=== PATIENT | male | born 1960 | race Caucasian/White ===

== ENCOUNTER 2019-07-27 05:12 | Inpatient (IN) | payer BC ==
[2019-07-24 09:17] LABS: BASOPHILS # (AUTO) 0.02 x10^3/uL (0-0.1); BASOPHILS % (AUTO) 1 % (0-1); EOSINOPHILS # (AUTO) 0.08 x10^3/uL (0-0.4); EOSINOPHILS % (AUTO) 2 % (1-7); LYMPHOCYTES # (AUTO) 1.01 x10^3/uL (1-3.4); LYMPHOCYTES % (AUTO) 24 % (22-44); MD NO; MEAN CORPUSCULAR HEMOGLOBIN 33.6 pg (27.5-34.5); MEAN CORPUSCULAR HGB CONC 33.4 g/dL (33.2-36.2); MEAN CORPUSCULAR VOLUME 100.8 fL (81-97); MONOCYTES # (AUTO) 0.62 x10^3/uL (0.2-0.8); MONOCYTES % (AUTO) 15 % (2-9); NEUTROPHILS # (AUTO) 2.42 x10^3/uL (1.8-6.8); NEUTROPHILS % (AUTO) 58 % (42-75); PLATELET COUNT 154 x10^3/uL (130-400); RED BLOOD COUNT 4.72 x10^6/uL (4.38-5.82); RED CELL DISTRIBUTION WIDTH 12.3 % (9.4-14.8)
[2019-07-24 09:22] LABS: INTERNATIONAL NORMALIZED RATIO 0.99 (0.93-1.1); PROTHROMBIN TIME 10.4 Seconds (9.6-11.5)
[2019-07-24 09:24] LABS: MICROSCOPIC NOT IND
[2019-07-24 09:27] LABS: CULTURE INDICATED? NO
[2019-07-24 09:31] LABS: ALBUMIN 3.9 g/dL (3.4-5.0); ANION GAP 8 mmol/L (5-15); CHLORIDE 109 mmol/L (98-107)
[2019-07-24 09:34] LABS: ALANINE AMINOTRANSFERASE 35 U/L (12-78); ALKALINE PHOSPHATASE 64 U/L (45-117); BILIRUBIN,TOTAL 1.7 mg/dL (0.2-1.0); CREATININE 0.98 mg/dL (0.7-1.3); TOTAL PROTEIN 7.6 g/dL (6.4-8.2)
[~2019-07-27] VITALS: Ht 180.3 cm; Wt 96.0 kg
[~2019-07-27 05:12] MED LIST: CYAN50003 PO; ETOD400T2 PO; Vitamin D3 PO
[2019-07-27] MEDS ORDERED: THROMBIN 5,000 UNIT VIAL TP ONE ×4 (06:08→10:00)
[2019-07-27] MEDS ORDERED: HEPARIN 1,000 UNITS/ML, 30ML ONE ×3 (06:08→09:27)
[2019-07-27] MEDS ORDERED: LACTATED RINGERS 1,000 ML IV SCH (06:09)
[2019-07-27] MEDS ORDERED: BACITRACIN 50,000 UNIT ONE (06:09)
[2019-07-27] MEDS ORDERED: ACETAMINOPHEN 500 MG TABLET PO ONE (06:30)
[2019-07-27] MEDS ORDERED: MIDAZOLAM 1 MG/ML, 2ML ONE ×2 (06:48→09:29)
[2019-07-27] MEDS ORDERED: FENTANYL PF 250 MCG/5ML ONE (06:48)
[2019-07-27] MEDS ORDERED: PROPOFOL 150 ML ONE (06:51)
[2019-07-27] MEDS ORDERED: ONDANSETRON 2MG/ML, 2ML IV PRN (07:00)
[2019-07-27] MEDS ORDERED: ONDANSETRON ODT 8 MG PO PRN (07:00)
[2019-07-27] MEDS ORDERED: FENTANYL PF 100 MCG/2ML IV PRN (07:00)
[2019-07-27] MEDS ORDERED: HYDROmorphone 2 MG/ML, 1ML IVPush PRN (07:00)
[2019-07-27] MEDS ORDERED: LORazepam 2 MG/ML, 1ML IVPush PRN (07:00)
[2019-07-27] MEDS ORDERED: OXYcodone 5 MG/5 ML ORAL.SOL UDC PO PRN (07:00)
[2019-07-27] MEDS ORDERED: DIAZEPAM 5 MG/ML, 2ML IVPush PRN (07:00)
[2019-07-27] MEDS ORDERED: PROMETHAZINE 25 MG/ML, 1ML IV PRN (07:00)
[2019-07-27] MEDS ORDERED: CALCIUM CHLORIDE 13.6 MEQ/10 ML ONE (07:03)
[2019-07-27] MEDS ORDERED: PHENYLEPHRINE 10 MG/ML ONE (07:03)
[2019-07-27] MEDS ORDERED: EPINEPHRINE 1 MG/ML, 1ML ONE (07:03)
[2019-07-27] MEDS ORDERED: HEPARIN 1,000 UNITS/ML, 30ML IVPB ONE (07:32)
[2019-07-27] MEDS ORDERED: ROCURONIUM 10MG/ML,5ML ONE (10:08)
[2019-07-27] MEDS ORDERED: NEOSTIGMINE 1 MG/ML, 10ML ONE (10:08)
[2019-07-27] MEDS ORDERED: ONDANSETRON 2MG/ML, 2ML ONE (10:08)
[2019-07-27] MEDS ORDERED: PROPOFOL 10 MG/ML, 20ML ONE (10:08)
[2019-07-27] MEDS ORDERED: SUCCINYLCHOLINE 20 MG/ML, 10ML ONE (10:08)
[2019-07-27] MEDS ORDERED: DEXAMETHASONE 4 MG/ML, 1ML ONE (10:08)
[2019-07-27] MEDS ORDERED: GLYCOPYRROLATE 0.2MG/1ML, 5ML ONE (10:08)
[2019-07-27] MEDS ORDERED: CEFAZOLIN 1,000 MG ONE (10:08)
[2019-07-27] MEDS ORDERED: ONDANSETRON 2MG/ML, 2ML IVPush PRN (10:30)
[2019-07-27] MEDS ORDERED: MAGNESIUM HYDROXIDE 8%, 30ML UDC PO PRN (10:30)
[2019-07-27] MEDS ORDERED: PROMETHAZINE 25 MG/ML, 1ML IM PRN (10:30)
[2019-07-27] MEDS ORDERED: HYDROcodone/APAP 5/325 TABLET PO PRN (10:30)
[2019-07-27] MEDS ORDERED: DIPHENHYDRAMINE 50 MG/ML, 1ML IVPush PRN (10:30)
[2019-07-27] MEDS ORDERED: SENNA/DOCUSATE TABLET PO PRN (10:30)
[2019-07-27] MEDS ORDERED: MORPHINE SULFATE 4 MG/ML, 1ML IVPush PRN (10:30)
[2019-07-27] MEDS ORDERED: PHARMACY MAY ADJ FOR RENAL FX MC PRN (10:30)
[2019-07-27] MEDS ORDERED: HYDROcodone/APAP 10/325 MG TABLET PO PRN (10:30)
[2019-07-27] MEDS ORDERED: FENTANYL PF 100 MCG/2ML ONE (10:43)
[2019-07-27 10:53] LABS: MEAN CORPUSCULAR HEMOGLOBIN 34.1 pg (27.5-34.5); MEAN CORPUSCULAR HGB CONC 34.3 g/dL (33.2-36.2); MEAN CORPUSCULAR VOLUME 99.4 fL (81-97); MEAN PLATELET VOLUME 8.9 fL (7.4-10.4); PLATELET COUNT 112 x10^3/uL (130-400); RED CELL DISTRIBUTION WIDTH 13.6 % (9.4-14.8)
[2019-07-27 11:12] LABS: BASOPHILS % (AUTO) 0 % (0-1); EOSINOPHILS # (AUTO) 0.14 x10^3/uL (0-0.4); EOSINOPHILS % (AUTO) 1 % (1-7); LYMPHOCYTES # (AUTO) 0.77 x10^3/uL (1-3.4); LYMPHOCYTES % (AUTO) 6 % (22-44); MD SCAN; MONOCYTES # (AUTO) 0.36 x10^3/uL (0.2-0.8); MONOCYTES % (AUTO) 3 % (2-9); NEUTROPHILS # (AUTO) 11.63 x10^3/uL (1.8-6.8); NEUTROPHILS % (AUTO) 90 % (42-75)
[2019-07-27] MEDS ORDERED: LIDOCAINE-MPF 2% ,5ML ONE (11:29)
[2019-07-27 12:39] LABS: INTERNATIONAL NORMALIZED RATIO 1.24 (0.93-1.1); PROTHROMBIN TIME 12.9 Seconds (9.6-11.5)
[2019-07-27 12:40] LABS: ANION GAP 7 mmol/L (5-15); CALCIUM 7.9 mg/dL (8.5-10.1); CHLORIDE 116 mmol/L (98-107); CREATININE 0.94 mg/dL (0.7-1.3)
[2019-07-27 12:55] LABS: BASOPHILS # (AUTO) 0.05 x10^3/uL (0-0.1); BASOPHILS % (AUTO) 0 % (0-1); EOSINOPHILS # (AUTO) 0.08 x10^3/uL (0-0.4); EOSINOPHILS % (AUTO) 1 % (1-7); LYMPHOCYTES # (AUTO) 0.51 x10^3/uL (1-3.4); LYMPHOCYTES % (AUTO) 4 % (22-44); MD SCAN; MEAN CORPUSCULAR HEMOGLOBIN 33.4 pg (27.5-34.5); MEAN CORPUSCULAR HGB CONC 33.3 g/dL (33.2-36.2); MEAN CORPUSCULAR VOLUME 100.3 fL (81-97); MEAN PLATELET VOLUME 9.4 fL (7.4-10.4); MONOCYTES # (AUTO) 0.37 x10^3/uL (0.2-0.8); MONOCYTES % (AUTO) 3 % (2-9); NEUTROPHILS # (AUTO) 12.31 x10^3/uL (1.8-6.8); NEUTROPHILS % (AUTO) 93 % (42-75); PLATELET COUNT 95 x10^3/uL (130-400); RED BLOOD COUNT 5.24 x10^6/uL (4.38-5.82); RED CELL DISTRIBUTION WIDTH 13.8 % (9.4-14.8)
[2019-07-27] MEDS: D5%-0.9% NACL+KCL 20MEQ 1,000 ML IV SCH ×2 (12:55→19:20)
[2019-07-27] MEDS: OXYcodone/APAP 5/325MG TABLET PO PRN ×3 (15:15→23:37)
[2019-07-27] MEDS: CEFAZOLIN PMX 1GM/50ML 50 ML IVPB SCH (17:31)
[2019-07-27] MEDS: METHOCARBAMOL 750 MG TABLET PO PRN (18:08)
[2019-07-27 18:37] LABS: BASOPHILS % (AUTO) 0 % (0-1); EOSINOPHILS % (AUTO) 0 % (1-7); LYMPHOCYTES # (AUTO) 0.46 x10^3/uL (1-3.4); LYMPHOCYTES % (AUTO) 3 % (22-44); MD NO; MEAN CORPUSCULAR HEMOGLOBIN 33.4 pg (27.5-34.5); MEAN CORPUSCULAR HGB CONC 33.5 g/dL (33.2-36.2); MEAN CORPUSCULAR VOLUME 99.6 fL (81-97); MEAN PLATELET VOLUME 9.7 fL (7.4-10.4); MONOCYTES # (AUTO) 0.78 x10^3/uL (0.2-0.8); MONOCYTES % (AUTO) 5 % (2-9); NEUTROPHILS # (AUTO) 14.37 x10^3/uL (1.8-6.8); NEUTROPHILS % (AUTO) 92 % (42-75); PLATELET COUNT 104 x10^3/uL (130-400); RED BLOOD COUNT 5.35 x10^6/uL (4.38-5.82); RED CELL DISTRIBUTION WIDTH 13.7 % (9.4-14.8)
[2019-07-27] MEDS: SODIUM CHLORIDE FLUSH 10ML SYR IVF SCH (19:07)
[2019-07-27 20:53] LABS: BASOPHILS # (AUTO) 0.11 x10^3/uL (0-0.1); BASOPHILS % (AUTO) 1 % (0-1); EOSINOPHILS % (AUTO) 0 % (1-7); LYMPHOCYTES # (AUTO) 0.46 x10^3/uL (1-3.4); LYMPHOCYTES % (AUTO) 3 % (22-44); MD NO; MEAN CORPUSCULAR HEMOGLOBIN 33.6 pg (27.5-34.5); MEAN CORPUSCULAR HGB CONC 33.7 g/dL (33.2-36.2); MEAN CORPUSCULAR VOLUME 99.7 fL (81-97); MONOCYTES # (AUTO) 0.92 x10^3/uL (0.2-0.8); MONOCYTES % (AUTO) 7 % (2-9); NEUTROPHILS # (AUTO) 12.49 x10^3/uL (1.8-6.8); NEUTROPHILS % (AUTO) 89 % (42-75); PLATELET COUNT 102 x10^3/uL (130-400); RED BLOOD COUNT 4.95 x10^6/uL (4.38-5.82)
[2019-07-28] MEDS: D5%-0.9% NACL+KCL 20MEQ 1,000 ML IV SCH ×2 (01:20→02:00)
[2019-07-28] MEDS: CEFAZOLIN PMX 1GM/50ML 50 ML IVPB SCH (01:26)
[2019-07-28] MEDS: METHOCARBAMOL 750 MG TABLET PO PRN ×3 (02:13→20:12)
[2019-07-28 02:32] LABS: MEAN CORPUSCULAR HGB CONC 33.9 g/dL (33.2-36.2); MEAN CORPUSCULAR VOLUME 100.3 fL (81-97); RED CELL DISTRIBUTION WIDTH 14.1 % (9.4-14.8)
[2019-07-28 02:49] LABS: MD YES; MEAN PLATELET VOLUME 9.4 fL (7.4-10.4); PLATELET COUNT 81 x10^3/uL (130-400)
[2019-07-28 02:53] LABS: LYMPH#(MANUAL) 1.06 x10^3/uL (1-3.4); LYMPHS% (MANUAL) 7 % (22-44); MONOS#(MANUAL) 1.37 x10^3/uL (0.3-2.7); MONOS% (MANUAL) 9 % (2-9); SEG#(MANUAL) 12.77 x10^3/uL (1.8-6.8); SEGS% (MANUAL) 84 % (42-75)
[2019-07-28 02:54] LABS: <PLATELET ESTIMATE> DECREASED; <RBC MORPHOLOGY> NORMAL
[2019-07-28 02:55] LABS: LARGE PLATELETS 1+
[2019-07-28] MEDS: OXYcodone/APAP 5/325MG TABLET PO PRN ×5 (03:16→23:36)
[2019-07-28 04:05] LABS: ALANINE AMINOTRANSFERASE 20 U/L (12-78); ALBUMIN 2.3 g/dL (3.4-5.0); ANION GAP 4 mmol/L (5-15); CALCIUM 7.4 mg/dL (8.5-10.1); CHLORIDE 113 mmol/L (98-107); CREATININE 0.86 mg/dL (0.7-1.3)
[2019-07-28 04:12] LABS: ALKALINE PHOSPHATASE 35 U/L (45-117); BILIRUBIN,TOTAL 1.4 mg/dL (0.2-1.0); TOTAL PROTEIN 4.8 g/dL (6.4-8.2)
[2019-07-28] MEDS: CYANOCOBALAMIN 1,000 MCG TABLET PO SCH (08:00)
[2019-07-28 08:28] LABS: MD YES; MEAN CORPUSCULAR HEMOGLOBIN 32.9 pg (27.5-34.5); MEAN CORPUSCULAR HGB CONC 33.4 g/dL (33.2-36.2); MEAN CORPUSCULAR VOLUME 98.5 fL (81-97); MEAN PLATELET VOLUME 9.5 fL (7.4-10.4); RED BLOOD COUNT 4.92 x10^6/uL (4.38-5.82); RED CELL DISTRIBUTION WIDTH 14.1 % (9.4-14.8)
[2019-07-28] MEDS: SODIUM CHLORIDE FLUSH 10ML SYR IVF SCH ×2 (09:00→18:59)
[2019-07-28] MEDS: CHOLECALCIFEROL 400 UNITS TABLET PO SCH (09:00)
[2019-07-28 10:17] LABS: BAND#(MANUAL) 0.34 x10^3/uL; BANDS%(MANUAL) 2 % (0-7); LYMPH#(MANUAL) 1.68 x10^3/uL (1-3.4); LYMPHS% (MANUAL) 10 % (22-44); MONOS#(MANUAL) 2.35 x10^3/uL (0.3-2.7); MONOS% (MANUAL) 14 % (2-9); SEG#(MANUAL) 12.43 x10^3/uL (1.8-6.8); SEGS% (MANUAL) 74 % (42-75)
[2019-07-28 10:18] LABS: <RBC MORPHOLOGY> NORMAL
[2019-07-29] MEDS: METHOCARBAMOL 750 MG TABLET PO PRN ×3 (04:07→21:34)
[2019-07-29 04:21] LABS: MEAN CORPUSCULAR HEMOGLOBIN 34.6 pg (27.5-34.5); MEAN CORPUSCULAR HGB CONC 34.6 g/dL (33.2-36.2); MEAN CORPUSCULAR VOLUME 99.9 fL (81-97); MEAN PLATELET VOLUME 9.1 fL (7.4-10.4); PLATELET COUNT 78 x10^3/uL (130-400); RED BLOOD COUNT 3.99 x10^6/uL (4.38-5.82); RED CELL DISTRIBUTION WIDTH 13.5 % (9.4-14.8)
[2019-07-29 04:26] LABS: MD YES
[2019-07-29 04:29] LABS: ALANINE AMINOTRANSFERASE 15 U/L (12-78); ALBUMIN 2.5 g/dL (3.4-5.0); ANION GAP 4 mmol/L (5-15); CALCIUM 7.8 mg/dL (8.5-10.1); CHLORIDE 107 mmol/L (98-107); CREATININE 0.97 mg/dL (0.7-1.3)
[2019-07-29 04:31] LABS: ALKALINE PHOSPHATASE 34 U/L (45-117); BILIRUBIN,TOTAL 1.1 mg/dL (0.2-1.0); TOTAL PROTEIN 5.3 g/dL (6.4-8.2)
[2019-07-29 04:36] LABS: EOS#(MANUAL) 0.11 x10^3/uL (0.0-0.4); EOS% (MANUAL) 1 % (1-7); LYMPH#(MANUAL) 1.05 x10^3/uL (1-3.4); LYMPHS% (MANUAL) 10 % (22-44); MONOS#(MANUAL) 0.84 x10^3/uL (0.3-2.7); MONOS% (MANUAL) 8 % (2-9); SEG#(MANUAL) 8.51 x10^3/uL (1.8-6.8); SEGS% (MANUAL) 81 % (42-75)
[2019-07-29 04:37] LABS: <PLATELET ESTIMATE> DECREASED; <PLT MORPHOLOGY> NORMAL PLT MORPH; <RBC MORPHOLOGY> NORMAL
[2019-07-29] MEDS: OXYcodone/APAP 5/325MG TABLET PO PRN ×4 (06:55→20:52)
[2019-07-29] MEDS: SODIUM CHLORIDE FLUSH 10ML SYR IVF SCH ×2 (08:49→21:35)
[2019-07-29] MEDS: CYANOCOBALAMIN 1,000 MCG TABLET PO SCH (08:49)
[2019-07-29] MEDS: CHOLECALCIFEROL 400 UNITS TABLET PO SCH (08:49)
[2019-07-29 11:22] VITALS: BP 133/80
[2019-07-29 13:56] VITALS: BP 124/78
[2019-07-29 18:52] VITALS: BP 123/73
[2019-07-30 00:52] VITALS: BP 120/76
[2019-07-30] MEDS: OXYcodone/APAP 5/325MG TABLET PO PRN ×5 (01:19→22:40)
[2019-07-30] MEDS: SODIUM CHLORIDE 0.9% 1,000 ML IV SCH ×2 (01:32→10:44)
[2019-07-30 05:22] LABS: ALBUMIN 2.6 g/dL (3.4-5.0); ANION GAP 4 mmol/L (5-15); CHLORIDE 106 mmol/L (98-107)
[2019-07-30 05:23] LABS: MEAN CORPUSCULAR HEMOGLOBIN 33.8 pg (27.5-34.5); MEAN CORPUSCULAR HGB CONC 34.1 g/dL (33.2-36.2); MEAN CORPUSCULAR VOLUME 99.3 fL (81-97); MEAN PLATELET VOLUME 9.4 fL (7.4-10.4); PLATELET COUNT 88 x10^3/uL (130-400); RED BLOOD COUNT 3.82 x10^6/uL (4.38-5.82); RED CELL DISTRIBUTION WIDTH 13.2 % (9.4-14.8)
[2019-07-30 05:26] LABS: ALANINE AMINOTRANSFERASE 16 U/L (12-78); ALKALINE PHOSPHATASE 36 U/L (45-117); CREATININE 0.84 mg/dL (0.7-1.3); TOTAL PROTEIN 5.6 g/dL (6.4-8.2)
[2019-07-30 06:04] LABS: BASOPHILS # (AUTO) 0.02 x10^3/uL (0-0.1); BASOPHILS % (AUTO) 0 % (0-1); EOSINOPHILS # (AUTO) 0.06 x10^3/uL (0-0.4); EOSINOPHILS % (AUTO) 1 % (1-7); LYMPHOCYTES # (AUTO) 1.07 x10^3/uL (1-3.4); LYMPHOCYTES % (AUTO) 12 % (22-44); MD SCAN; MONOCYTES # (AUTO) 1.11 x10^3/uL (0.2-0.8); MONOCYTES % (AUTO) 13 % (2-9); NEUTROPHILS # (AUTO) 6.59 x10^3/uL (1.8-6.8); NEUTROPHILS % (AUTO) 74 % (42-75)
[2019-07-30] MEDS: METHOCARBAMOL 750 MG TABLET PO PRN ×2 (06:45→21:53)
[2019-07-30 06:47] VITALS: BP 118/77
[2019-07-30] MEDS ORDERED: SODIUM CHLORIDE 0.9% 1,000 ML IV SCH (09:00)
[2019-07-30] MEDS: CHOLECALCIFEROL 400 UNITS TABLET PO SCH (09:08)
[2019-07-30] MEDS: SODIUM CHLORIDE FLUSH 10ML SYR IVF SCH (09:08)
[2019-07-30] MEDS: CYANOCOBALAMIN 1,000 MCG TABLET PO SCH (09:08)
[2019-07-30 12:24] VITALS: BP 135/81
[2019-07-30] MEDS ORDERED: FENTANYL PF 250 MCG/5ML ONE (13:58)
[2019-07-30] MEDS ORDERED: MIDAZOLAM 1 MG/ML, 2ML ONE (13:58)
[2019-07-30] MEDS ORDERED: BUPIVACAINE/PF 0.5% ONE (15:21)
[2019-07-30] MEDS ORDERED: THROMBIN 5,000 UNIT VIAL TP ONE (15:22)
[2019-07-30] MEDS ORDERED: VANCOMYCIN 1,000 MG ONE (15:22)
[2019-07-30] MEDS ORDERED: BACITRACIN 50,000 UNIT ONE (15:22)
[2019-07-30] MEDS ORDERED: PHENYLEPHRINE 10 MG/ML ONE (15:49)
[2019-07-30] MEDS ORDERED: EPHEDRINE 50 MG/ML, 1ML ONE (15:49)
[2019-07-30] MEDS ORDERED: BUPIVACAINE LIPOSOME/PF 10ML INFIL ONE (16:03)
[2019-07-30] MEDS ORDERED: DIAZEPAM 5 MG/ML, 2ML IVPush PRN (17:00)
[2019-07-30] MEDS ORDERED: HYDROmorphone 2 MG/ML, 1ML IVPush PRN (17:00)
[2019-07-30] MEDS ORDERED: MEPERIDINE/PF 25MG/ML,1ML IVPush PRN (17:00)
[2019-07-30] MEDS ORDERED: PROMETHAZINE 25 MG/ML, 1ML IV PRN (17:00)
[2019-07-30] MEDS ORDERED: ALBUTEROL/IPRATROPIUM 2.5MG/0.5MG, 3 ML NPPB PRN (17:00)
[2019-07-30] MEDS ORDERED: hydrALAzine 20 MG/ML, 1ML IV PRN (17:00)
[2019-07-30] MEDS ORDERED: METOPROLOL 1 MG/ML, 5ML IV PRN (17:00)
[2019-07-30] MEDS ORDERED: OXYcodone 5 MG/5 ML ORAL.SOL UDC PO PRN (17:00)
[2019-07-30] MEDS ORDERED: ACETAMINOPHEN 325 MG TABLET PO PRN (17:00)
[2019-07-30] MEDS ORDERED: MIDAZOLAM 1 MG/ML, 2ML IV PRN (17:00)
[2019-07-30] MEDS ORDERED: PROPOFOL 50 ML ONE (17:18)
[2019-07-30] MEDS ORDERED: OXYcodone 5 MG/5 ML ORAL.SOL UDC ONE (17:53)
[2019-07-30] MEDS ORDERED: FENTANYL PF 100 MCG/2ML ONE (17:53)
[2019-07-30] MEDS: FENTANYL PF 100 MCG/2ML IV PRN ×3 (18:02→18:15)
[2019-07-30 19:34] VITALS: BP 141/89
[2019-07-30] MEDS ORDERED: PHARMACY MAY ADJ FOR RENAL FX MC PRN (20:00)
[2019-07-30] MEDS ORDERED: DIPHENHYDRAMINE 50 MG/ML, 1ML IM PRN (20:00)
[2019-07-30] MEDS ORDERED: LABETALOL 5MG/ML, 20ML IV PRN (20:00)
[2019-07-30] MEDS ORDERED: DIPHENHYDRAMINE 50 MG/ML, 1ML IVPush PRN (20:00)
[2019-07-30] MEDS ORDERED: MAGNESIUM HYDROXIDE 8%, 30ML UDC PO PRN (20:00)
[2019-07-30] MEDS ORDERED: PROMETHAZINE 25 MG/ML, 1ML IM PRN (20:00)
[2019-07-30] MEDS ORDERED: BISACODYL 10 MG SUPP PR PRN (20:00)
[2019-07-30] MEDS ORDERED: ONDANSETRON 2MG/ML, 2ML IV PRN (20:00)
[2019-07-30] MEDS: D5%-0.9% NACL+KCL 20MEQ 1,000 ML IV SCH (22:26)
[2019-07-31 00:02] VITALS: BP 124/81
[2019-07-31] MEDS: CEFAZOLIN PMX 1GM/50ML 50 ML IVPB SCH ×2 (01:56→09:45)
[2019-07-31 03:28] VITALS: BP 125/75
[2019-07-31] MEDS: OXYcodone/APAP 5/325MG TABLET PO PRN ×5 (03:38→23:20)
[2019-07-31 05:23] LABS: BASOPHILS # (AUTO) 0.01 x10^3/uL (0-0.1); BASOPHILS % (AUTO) 0 % (0-1); EOSINOPHILS # (AUTO) 0.12 x10^3/uL (0-0.4); EOSINOPHILS % (AUTO) 1 % (1-7); LYMPHOCYTES # (AUTO) 0.35 x10^3/uL (1-3.4); LYMPHOCYTES % (AUTO) 3 % (22-44); MD NO; MEAN CORPUSCULAR HEMOGLOBIN 33.6 pg (27.5-34.5); MEAN CORPUSCULAR HGB CONC 33.6 g/dL (33.2-36.2); MEAN PLATELET VOLUME 9.6 fL (7.4-10.4); MONOCYTES # (AUTO) 0.76 x10^3/uL (0.2-0.8); MONOCYTES % (AUTO) 8 % (2-9); NEUTROPHILS % (AUTO) 88 % (42-75); PLATELET COUNT 112 x10^3/uL (130-400); RED BLOOD COUNT 3.71 x10^6/uL (4.38-5.82); RED CELL DISTRIBUTION WIDTH 12.8 % (9.4-14.8)
[2019-07-31 05:32] LABS: ALBUMIN 2.4 g/dL (3.4-5.0); CHLORIDE 109 mmol/L (98-107)
[2019-07-31 05:35] LABS: ANION GAP 5 mmol/L (5-15); CALCIUM 7.8 mg/dL (8.5-10.1)
[2019-07-31] MEDS: ENOXAPARIN 40 MG/0.4 ML SQ SCH (06:27)
[2019-07-31] MEDS: METHOCARBAMOL 750 MG TABLET PO PRN ×3 (06:27→23:20)
[2019-07-31 07:18] VITALS: BP 121/87
[2019-07-31] MEDS ORDERED: CALCIUM GLUCONATE 4.6 MEQ in SODIUM CHLORIDE 0.9% 50 ML IV ONE (07:30)
[2019-07-31] MEDS ORDERED: CEPHALEXIN 500 MG CAPSULE PO SCH ×2 (08:00→16:00)
[2019-07-31] MEDS: CHOLECALCIFEROL 400 UNITS TABLET PO SCH (08:13)
[2019-07-31] MEDS: SENNA/DOCUSATE TABLET PO SCH (08:14)
[2019-07-31] MEDS: D5%-0.9% NACL+KCL 20MEQ 1,000 ML IV SCH ×2 (12:00→19:40)
[2019-07-31 13:32] VITALS: BP 152/91
[2019-07-31] MEDS: CEPHALEXIN 500 MG CAPSULE PO SCH ×2 (15:01→19:39)
[2019-07-31 19:58] VITALS: BP 125/74
[2019-08-01] MEDS: OXYcodone/APAP 5/325MG TABLET PO PRN ×5 (03:53→21:07)
[2019-08-01 03:55] VITALS: BP 151/93
[2019-08-01 05:13] LABS: BASOPHILS # (AUTO) 0.05 x10^3/uL (0-0.1); BASOPHILS % (AUTO) 1 % (0-1); EOSINOPHILS # (AUTO) 0.09 x10^3/uL (0-0.4); EOSINOPHILS % (AUTO) 1 % (1-7); LYMPHOCYTES # (AUTO) 0.95 x10^3/uL (1-3.4); LYMPHOCYTES % (AUTO) 11 % (22-44); MD NO; MEAN CORPUSCULAR HEMOGLOBIN 33.2 pg (27.5-34.5); MEAN CORPUSCULAR HGB CONC 33.2 g/dL (33.2-36.2); MEAN CORPUSCULAR VOLUME 100.1 fL (81-97); MEAN PLATELET VOLUME 8.9 fL (7.4-10.4); MONOCYTES # (AUTO) 1.21 x10^3/uL (0.2-0.8); MONOCYTES % (AUTO) 14 % (2-9); NEUTROPHILS # (AUTO) 6.33 x10^3/uL (1.8-6.8); NEUTROPHILS % (AUTO) 73 % (42-75); PLATELET COUNT 132 x10^3/uL (130-400); RED BLOOD COUNT 3.67 x10^6/uL (4.38-5.82); RED CELL DISTRIBUTION WIDTH 13.1 % (9.4-14.8)
[2019-08-01 05:23] LABS: ALBUMIN 2.4 g/dL (3.4-5.0); ANION GAP 5 mmol/L (5-15); CALCIUM 8.2 mg/dL (8.5-10.1); CHLORIDE 107 mmol/L (98-107); CREATININE 0.78 mg/dL (0.7-1.3)
[2019-08-01] MEDS: CEPHALEXIN 500 MG CAPSULE PO SCH ×4 (05:52→21:07)
[2019-08-01] MEDS: ENOXAPARIN 40 MG/0.4 ML SQ SCH (05:52)
[2019-08-01 07:24] VITALS: BP 132/88
[2019-08-01] MEDS: D5%-0.9% NACL+KCL 20MEQ 1,000 ML IV SCH ×2 (07:44→13:28)
[2019-08-01] MEDS: CHOLECALCIFEROL 400 UNITS TABLET PO SCH (08:31)
[2019-08-01] MEDS: SENNA/DOCUSATE TABLET PO SCH (08:32)
[2019-08-01] MEDS: METHOCARBAMOL 750 MG TABLET PO PRN ×2 (08:32→16:52)
[2019-08-01] MEDS ORDERED: HYDROmorphone 1 MG/ML, 1ML INJ IV PRN (09:00)
[2019-08-01 14:15] VITALS: BP 127/83
[2019-08-01 19:55] VITALS: BP 119/79
[2019-08-01] MEDS: DIPHENHYDRAMINE 25 MG CAPSULE PO PRN (21:17)
[2019-08-02] MEDS: OXYcodone/APAP 5/325MG TABLET PO PRN ×6 (01:21→22:39)
[2019-08-02] MEDS: METHOCARBAMOL 750 MG TABLET PO PRN ×3 (01:21→17:48)
[2019-08-02 01:25] VITALS: BP 108/73
[2019-08-02] MEDS: D5%-0.9% NACL+KCL 20MEQ 1,000 ML IV SCH ×2 (04:00→12:50)
[2019-08-02] MEDS: CEPHALEXIN 500 MG CAPSULE PO SCH ×4 (05:50→22:39)
[2019-08-02] MEDS: ENOXAPARIN 40 MG/0.4 ML SQ SCH (05:50)
[2019-08-02] MEDS: DIPHENHYDRAMINE 25 MG CAPSULE PO PRN ×2 (05:56→19:59)
[2019-08-02 06:17] LABS: BASOPHILS # (AUTO) 0.02 x10^3/uL (0-0.1); BASOPHILS % (AUTO) 0 % (0-1); EOSINOPHILS # (AUTO) 0.24 x10^3/uL (0-0.4); EOSINOPHILS % (AUTO) 3 % (1-7); LYMPHOCYTES # (AUTO) 0.96 x10^3/uL (1-3.4); LYMPHOCYTES % (AUTO) 12 % (22-44); MD NO; MEAN CORPUSCULAR HEMOGLOBIN 33.6 pg (27.5-34.5); MEAN CORPUSCULAR HGB CONC 33.6 g/dL (33.2-36.2); MEAN CORPUSCULAR VOLUME 99.9 fL (81-97); MEAN PLATELET VOLUME 9.1 fL (7.4-10.4); MONOCYTES # (AUTO) 1.04 x10^3/uL (0.2-0.8); MONOCYTES % (AUTO) 13 % (2-9); NEUTROPHILS # (AUTO) 5.64 x10^3/uL (1.8-6.8); NEUTROPHILS % (AUTO) 71 % (42-75); PLATELET COUNT 159 x10^3/uL (130-400)
[2019-08-02 07:40] VITALS: BP 112/79
[2019-08-02] MEDS: CHOLECALCIFEROL 400 UNITS TABLET PO SCH (09:00)
[2019-08-02] MEDS: SENNA/DOCUSATE TABLET PO SCH (09:00)
[2019-08-02] MEDS: DEXAMETHASONE 4 MG/ML, 1ML IVPush SCH ×3 (09:54→22:39)
[2019-08-02 14:24] VITALS: BP 144/91
[2019-08-02 19:10] VITALS: BP 131/77
[2019-08-03 01:10] VITALS: BP 103/68
[2019-08-03] MEDS: METHOCARBAMOL 750 MG TABLET PO PRN ×3 (04:03→21:54)
[2019-08-03] MEDS: OXYcodone/APAP 5/325MG TABLET PO PRN ×4 (04:04→19:46)
[2019-08-03] MEDS: DEXAMETHASONE 4 MG/ML, 1ML IVPush SCH ×4 (04:05→21:54)
[2019-08-03 05:46] LABS: ALBUMIN 2.4 g/dL (3.4-5.0); ANION GAP 5 mmol/L (5-15); CALCIUM 8.8 mg/dL (8.5-10.1); CHLORIDE 105 mmol/L (98-107); CREATININE 0.78 mg/dL (0.7-1.3)
[2019-08-03 05:56] LABS: BASOPHILS # (AUTO) 0.01 x10^3/uL (0-0.1); BASOPHILS % (AUTO) 0 % (0-1); EOSINOPHILS # (AUTO) 0.08 x10^3/uL (0-0.4); EOSINOPHILS % (AUTO) 1 % (1-7); LYMPHOCYTES # (AUTO) 0.43 x10^3/uL (1-3.4); LYMPHOCYTES % (AUTO) 5 % (22-44); MD NO; MEAN CORPUSCULAR HEMOGLOBIN 33.6 pg (27.5-34.5); MEAN CORPUSCULAR HGB CONC 33.6 g/dL (33.2-36.2); MEAN CORPUSCULAR VOLUME 100.1 fL (81-97); MEAN PLATELET VOLUME 8.8 fL (7.4-10.4); MONOCYTES # (AUTO) 0.48 x10^3/uL (0.2-0.8); MONOCYTES % (AUTO) 6 % (2-9); NEUTROPHILS # (AUTO) 7.68 x10^3/uL (1.8-6.8); NEUTROPHILS % (AUTO) 89 % (42-75); PLATELET COUNT 202 x10^3/uL (130-400); RED CELL DISTRIBUTION WIDTH 12.8 % (9.4-14.8)
[2019-08-03] MEDS ORDERED: BACITRACIN 50,000 UNIT ONE (06:26)
[2019-08-03] MEDS ORDERED: EPINEPHRINE 1 MG/ML, 1ML ONE (06:26)
[2019-08-03] MEDS ORDERED: BUPIVACAINE 0.25% ONE (06:26)
[2019-08-03] MEDS ORDERED: THROMBIN 5,000 UNIT VIAL TP ONE ×2 (06:26→10:33)
[2019-08-03] MEDS ORDERED: BUPIVACAINE/PF 0.5% ONE (06:26)
[2019-08-03] MEDS ORDERED: VANCOMYCIN 1,000 MG ONE (06:26)
[2019-08-03] MEDS: CEPHALEXIN 500 MG CAPSULE PO SCH ×4 (06:31→21:13)
[2019-08-03] MEDS: ENOXAPARIN 40 MG/0.4 ML SQ SCH (06:31)
[2019-08-03 06:45] VITALS: BP 126/89
[2019-08-03] MEDS: D5%-0.9% NACL+KCL 20MEQ 1,000 ML IV SCH ×4 (07:30→17:58)
[2019-08-03] MEDS: SENNA/DOCUSATE TABLET PO SCH (07:30)
[2019-08-03] MEDS: CHOLECALCIFEROL 400 UNITS TABLET PO SCH (07:30)
[2019-08-03] MEDS ORDERED: ACETAMINOPHEN 500 MG TABLET PO ONE (08:30)
[2019-08-03] MEDS ORDERED: GABAPENTIN 300 MG CAPSULE PO ONE (08:30)
[2019-08-03] MEDS ORDERED: SCOPOLAMINE PATCH, 1.5MG PATCH.TD72 TD ONE ×2 (09:09→09:30)
[2019-08-03] MEDS ORDERED: ONDANSETRON 2MG/ML, 2ML ONE (09:57)
[2019-08-03] MEDS ORDERED: SUCCINYLCHOLINE 20 MG/ML, 10ML ONE (09:57)
[2019-08-03] MEDS ORDERED: MIDAZOLAM 1 MG/ML, 2ML ONE (09:57)
[2019-08-03] MEDS ORDERED: ROCURONIUM 10 MG/ML,10ML ONE (09:57)
[2019-08-03] MEDS ORDERED: PROPOFOL 10 MG/ML, 20ML ONE (09:57)
[2019-08-03] MEDS ORDERED: CEFAZOLIN 1,000 MG ONE (09:57)
[2019-08-03] MEDS ORDERED: PROPOFOL 10 MG/ML, 50ML ONE (09:57)
[2019-08-03] MEDS ORDERED: FENTANYL PF 100 MCG/2ML ONE ×2 (09:57→12:03)
[2019-08-03] MEDS ORDERED: DEXAMETHASONE 4 MG/ML, 1ML ONE (09:57)
[2019-08-03] MEDS ORDERED: hydrALAzine 20 MG/ML, 1ML IV PRN (10:30)
[2019-08-03] MEDS ORDERED: MEPERIDINE/PF 25MG/ML,1ML IVPush PRN (10:30)
[2019-08-03] MEDS ORDERED: LABETALOL 5MG/ML, 20ML IV PRN (10:30)
[2019-08-03] MEDS ORDERED: HYDROmorphone 2 MG/ML, 1ML IVPush PRN (10:30)
[2019-08-03] MEDS ORDERED: ONDANSETRON 2MG/ML, 2ML IV PRN (10:30)
[2019-08-03] MEDS ORDERED: LORazepam 2 MG/ML, 1ML IVPush PRN (10:30)
[2019-08-03] MEDS ORDERED: OXYcodone 5 MG/5 ML ORAL.SOL UDC PO PRN (10:30)
[2019-08-03] MEDS ORDERED: BACITRACIN 50,000 UNIT IRRIG ONE (10:32)
[2019-08-03] MEDS ORDERED: BUPIVACAINE/PF 0.5% INFIL ONE (10:33)
[2019-08-03] MEDS ORDERED: BUPIVACAINE LIPOSOME/PF 20ML INFIL ONE ×2 (11:30→11:34)
[2019-08-03] MEDS ORDERED: METHOCARBAMOL 750 MG TABLET PO PRN (12:00)
[2019-08-03] MEDS ORDERED: MAGNESIUM HYDROXIDE 8%, 30ML UDC PO PRN (12:00)
[2019-08-03] MEDS ORDERED: SENNA/DOCUSATE TABLET PO PRN (12:00)
[2019-08-03] MEDS ORDERED: PROMETHAZINE 25 MG/ML, 1ML IM PRN (12:00)
[2019-08-03] MEDS ORDERED: HYDROcodone/APAP 10/325 MG TABLET PO PRN (12:00)
[2019-08-03] MEDS ORDERED: PHARMACY MAY ADJ FOR RENAL FX MC PRN (12:00)
[2019-08-03] MEDS ORDERED: ONDANSETRON 2MG/ML, 2ML IVPush PRN (12:00)
[2019-08-03] MEDS ORDERED: OXYcodone/APAP 5/325MG TABLET PO PRN (12:00)
[2019-08-03] MEDS ORDERED: HYDROcodone/APAP 5/325 TABLET PO PRN (12:00)
[2019-08-03] MEDS ORDERED: morphine SULFATE 10 MG/ML, 1ML IVPush PRN (12:00)
[2019-08-03] MEDS ORDERED: BISACODYL 10 MG SUPP PR PRN (12:00)
[2019-08-03] MEDS ORDERED: DIPHENHYDRAMINE 50 MG/ML, 1ML IVPush PRN (12:00)
[2019-08-03] MEDS ORDERED: CYCLOBENZAPRINE 10 MG TABLET PO PRN (12:00)
[2019-08-03] MEDS ORDERED: OXYcodone 5 MG/5 ML ORAL.SOL UDC ONE (12:04)
[2019-08-03] MEDS: FENTANYL PF 100 MCG/2ML IV PRN ×2 (12:18→12:29)
[2019-08-03 14:00] VITALS: BP 135/96
[2019-08-03] MEDS: CEFAZOLIN PMX 1GM/50ML 50 ML IVPB SCH (17:57)
[2019-08-03] MEDS: SODIUM CHLORIDE FLUSH 10ML SYR IVF SCH (21:00)
[2019-08-03] MEDS: DIPHENHYDRAMINE 25 MG CAPSULE PO PRN (21:54)
[2019-08-03 21:58] VITALS: BP 102/63
[2019-08-04] MEDS: OXYcodone/APAP 5/325MG TABLET PO PRN ×6 (01:06→22:50)
[2019-08-04 01:45] VITALS: BP 118/73
[2019-08-04] MEDS: D5%-0.9% NACL+KCL 20MEQ 1,000 ML IV SCH ×2 (01:46→15:35)
[2019-08-04] MEDS: CEFAZOLIN PMX 1GM/50ML 50 ML IVPB SCH (01:47)
[2019-08-04] MEDS: DEXAMETHASONE 4 MG/ML, 1ML IVPush SCH ×4 (03:50→21:36)
[2019-08-04 05:32] VITALS: BP 118/71
[2019-08-04] MEDS: METHOCARBAMOL 750 MG TABLET PO PRN ×3 (05:54→22:50)
[2019-08-04] MEDS: ENOXAPARIN 40 MG/0.4 ML SQ SCH (05:54)
[2019-08-04] MEDS: CEPHALEXIN 500 MG CAPSULE PO SCH ×4 (05:54→20:40)
[2019-08-04 08:14] VITALS: BP 126/81
[2019-08-04] MEDS: SENNA/DOCUSATE TABLET PO SCH (09:13)
[2019-08-04] MEDS: CHOLECALCIFEROL 400 UNITS TABLET PO SCH (09:13)
[2019-08-04] MEDS: SODIUM CHLORIDE FLUSH 10ML SYR IVF SCH ×2 (09:17→20:40)
[2019-08-04 12:15] VITALS: BP 128/85
[2019-08-04 19:11] VITALS: BP 121/80
[2019-08-05 03:18] VITALS: BP 121/80
[2019-08-05] MEDS: OXYcodone/APAP 5/325MG TABLET PO PRN ×2 (03:21→08:04)
[2019-08-05] MEDS: DEXAMETHASONE 4 MG/ML, 1ML IVPush SCH ×2 (04:02→10:53)
[2019-08-05] MEDS: D5%-0.9% NACL+KCL 20MEQ 1,000 ML IV SCH (04:27)
[2019-08-05] MEDS: CEPHALEXIN 500 MG CAPSULE PO SCH ×2 (05:49→10:53)
[2019-08-05] MEDS: ENOXAPARIN 40 MG/0.4 ML SQ SCH (05:49)
[2019-08-05 07:03] VITALS: BP 122/76
[2019-08-05] MEDS: METHOCARBAMOL 750 MG TABLET PO PRN (08:02)
[2019-08-05] MEDS: CHOLECALCIFEROL 400 UNITS TABLET PO SCH (08:02)
[2019-08-05] MEDS: SENNA/DOCUSATE TABLET PO SCH (08:04)
[2019-08-05] MEDS: SODIUM CHLORIDE FLUSH 10ML SYR IVF SCH (08:06)
[2019-08-05] MEDS ORDERED: CEPH-376 PO (08:34)
[2019-08-05] MEDS ORDERED: OXYC-307 PO (08:34)
[2019-08-05] MEDS ORDERED: METH750T2 PO (08:34)
[2019-08-05 11:17] VITALS: BP 123/78
== END 2019-08-05 12:00 | disposition home or self-care (01) | DRG 453 ==
LOC: ORIP 05:12 → ICU 11:24 → 4NE 07-29 10:30
PROVIDERS: ADMIT Neurological Surgery; ATTEND Internal Medicine
PROC: 06QD0ZZ Repair Left Common Iliac Vein, Open Approach (ICD-10-PCS; 2019-07-27)
PROC: 0SB40ZZ Excision of Lumbosacral Disc, Open Approach (ICD-10-PCS; 2019-07-27)
PROC: 00NY0ZZ Release Lumbar Spinal Cord, Open Approach (ICD-10-PCS; 2019-07-27)
PROC: 0SG00A0 Fusion of Lumbar Vertebral Joint with Interbody Fusion Device, Anterior Approach, Anterior Column, Open Approach (ICD-10-PCS; 2019-07-27)
PROC: 4A11X4G Monitoring of Peripheral Nervous Electrical Activity, Intraoperative, External Approach (ICD-10-PCS; 2019-07-27)
PROC: 30233K1 Transfusion of Nonautologous Frozen Plasma into Peripheral Vein, Percutaneous Approach (ICD-10-PCS; 2019-07-27)
PROC: 30233N1 Transfusion of Nonautologous Red Blood Cells into Peripheral Vein, Percutaneous Approach (ICD-10-PCS; 2019-07-27)
PROC: 30233R1 Transfusion of Nonautologous Platelets into Peripheral Vein, Percutaneous Approach (ICD-10-PCS; 2019-07-27)
PROC: 0SG30A0 Fusion of Lumbosacral Joint with Interbody Fusion Device, Anterior Approach, Anterior Column, Open Approach (ICD-10-PCS; principal; 2019-07-27 07:00)
PROC: 5A09357 Assistance with Respiratory Ventilation, Less than 24 Consecutive Hours, Continuous Positive Airway Pressure (ICD-10-PCS; 2019-07-31)
PROC: 0SG0071 Fusion of Lumbar Vertebral Joint with Autologous Tissue Substitute, Posterior Approach, Posterior Column, Open Approach (ICD-10-PCS; 2019-08-03)
PROC: 0SG3071 Fusion of Lumbosacral Joint with Autologous Tissue Substitute, Posterior Approach, Posterior Column, Open Approach (ICD-10-PCS; 2019-08-03)
PROC: 5A09357 Assistance with Respiratory Ventilation, Less than 24 Consecutive Hours, Continuous Positive Airway Pressure (ICD-10-PCS; 2019-08-03)
PROC: 8E0W0CZ Robotic Assisted Procedure of Trunk Region, Open Approach (ICD-10-PCS; 2019-08-03)
PROC: 5A09357 Assistance with Respiratory Ventilation, Less than 24 Consecutive Hours, Continuous Positive Airway Pressure (ICD-10-PCS; 2019-08-04)
DX: M51.17 Intervertebral disc disorders with radiculopathy, lumbosacral region (principal); S35.515A Injury of left iliac vein, initial encounter; R57.1 Hypovolemic shock; E44.0 Moderate protein-calorie malnutrition; D62 Acute posthemorrhagic anemia; M48.07 Spinal stenosis, lumbosacral region; M21.372 Foot drop, left foot; M47.27 Other spondylosis with radiculopathy, lumbosacral region; R21 Rash and other nonspecific skin eruption; E53.8 Deficiency of other specified B group vitamins; G47.33 Obstructive sleep apnea (adult) (pediatric); D69.6 Thrombocytopenia, unspecified; G89.4 Chronic pain syndrome; K76.89 Other specified diseases of liver; D72.823 Leukemoid reaction; L25.9 Unspecified contact dermatitis, unspecified cause; D75.89 Other specified diseases of blood and blood-forming organs; Z68.29 Body mass index [BMI] 29.0-29.9, adult; Z82.49 Family history of ischemic heart disease and other diseases of the circulatory system; Z90.49 Acquired absence of other specified parts of digestive tract
CPT/HCPCS: 36415; 72100; 72110; 74018; J3490; S0020; 71046; 72131; 76700; 80048; 80053; 80069; 81003; 82330; 82607; 82803; 82947; 83690; 83735; 84100; 84132; 84295; 84443; 85014; 85025; 85610; 85730; 86850; 86900; 86923; 87081; 93005; C1713; C9290; G0378; J0171; J0610; J0690; J1100; J1644; J1650; J2250; J2405; J2704; J2710; J3010; J3370; C1760; C1763; C1769; C1781; J0330; J2370; J3480; J7030; J7120; P9016; P9017; P9035; Q0163